=== PATIENT | female | born 1970 | race Caucasian/White ===

== ENCOUNTER 2018-06-13 16:32 | Emergency (ER) | payer MEDICAID ==
[~2018-06-13] VITALS: Ht 152.4 cm; Wt 68.0 kg
[2018-06-13 21:05] VITALS: BP 136/83
== END 2018-06-13 21:07 | disposition home or self-care (01) ==
LOC: ER 16:32
DX: J06.9 Acute upper respiratory infection, unspecified (principal); E11.9 Type 2 diabetes mellitus without complications; E78.00 Pure hypercholesterolemia, unspecified; I10 Essential (primary) hypertension; E78.5 Hyperlipidemia, unspecified
CPT/HCPCS: 71045; 81025; 93005; 99283

== ENCOUNTER 2021-10-19 11:38 | Emergency (ER) | payer MEDICAID ==
[~2021-10-19] VITALS: Ht 152.4 cm; Wt 60.0 kg
[2021-10-19 15:17] LABS: CHLORIDE 98 mEq/L (98-107)
[2021-10-19 15:23] LABS: BASOPHILS % 0.6 % (0.0-2.0); EOSINOPHILS % 0.1 % (0.0-5.0); HEMATOCRIT. 33.4 % (36.0-48.0); HEMOGLOBIN. 10.1 g/dL (12.0-16.0); LYMPHOCYTES % 27.3 % (20.0-50.0); MEAN CORPUSCULAR VOLUME 69.8 fL (81.0-99.0); MEAN PLATELET VOLUME 7.2 fl (7.4-10.4); MONOCYTES % 6.6 % (2.0-8.0); NEUTROPHILS % 65.4 % (40.0-76.0); PLATELET 420 x1000/uL (130-400); RED BLOOD CELL COUNT 4.79 mill/uL (4.2-5.4); RED CELL DISTRIBUTION WIDTH 24.6 % (11.6-14.6)
[2021-10-19 15:29] LABS: CLARITY URINE CLEAR (CLEAR); COLOR URINE YELLOW (YELLOW); KETONES URINE NEGATIVE (NEGATIVE); LEUKOCYTE ESTERASE URINE NEGATIVE (NEGATIVE); NITRITE URINE NEGATIVE (NEGATIVE); OCCULT BLOOD URINE NEGATIVE (NEGATIVE); PH URINE 5.5 (4.5-8.0); PROTEIN URINE NEGATIVE (NEGATIVE); SPECIFIC GRAVITY URINE 1.012 (1.005-1.030); UROBILINOGEN URINE 0.2 E.U./dL (0.2-1.0)
[2021-10-19 15:34] LABS: T4 FREE 1.26 ng/dL (0.76-1.46)
[2021-10-19 17:08] LABS: PLATELET ESTIMATE INCREASED
[2021-10-19 17:49] VITALS: BP 128/76
== END 2021-10-19 17:49 | disposition home or self-care (01) ==
LOC: ER 11:38
DX: R53.1 Weakness (principal); I10 Essential (primary) hypertension; E11.9 Type 2 diabetes mellitus without complications; E78.00 Pure hypercholesterolemia, unspecified; E03.9 Hypothyroidism, unspecified
CPT/HCPCS: 36415; 71045; 80053; 81003; 84439; 84443; 85025; 99285

== ENCOUNTER 2021-11-15 11:56 | Emergency (ER) | payer MEDICAID, OTHER ==
[~2021-11-15] VITALS: Ht 165.1 cm; Wt 65.0 kg
[2021-11-15] MEDS ORDERED: SODIUM CHLORIDE 0.9% 1,000 ML IV ONE (12:15)
[2021-11-15 12:45] LABS: HEMATOCRIT. 31.3 % (36.0-48.0); HEMOGLOBIN. 9.8 g/dL (12.0-16.0); MEAN CORPUSCULAR HEMOGLOBIN 22.5 pg (28.0-32.0); MEAN CORPUSCULAR VOLUME 71.5 fL (81.0-99.0); MEAN PLATELET VOLUME 7.1 fl (7.4-10.4); PLATELET 376 x1000/uL (130-400); RED BLOOD CELL COUNT 4.37 mill/uL (4.2-5.4); RED CELL DISTRIBUTION WIDTH 20.8 % (11.6-14.6)
[2021-11-15 12:47] LABS: CHLORIDE 92 mEq/L (98-107)
[2021-11-15 12:56] LABS: ETHANOL BLOOD < 10 mg/dL
[2021-11-15 13:12] LABS: HCG SCREEN NEGATIVE
[2021-11-15 14:30] LABS: CLARITY URINE CLOUDY (CLEAR); COLOR URINE YELLOW (YELLOW); KETONES URINE 2+ (NEGATIVE); LEUKOCYTE ESTERASE URINE NEGATIVE (NEGATIVE); NITRITE URINE NEGATIVE (NEGATIVE); OCCULT BLOOD URINE NEGATIVE (NEGATIVE); PH URINE 6.5 (4.5-8.0); PROTEIN URINE TRACE (NEGATIVE); SPECIFIC GRAVITY URINE 1.035 (1.005-1.030)
[2021-11-15 14:44] LABS: *AMPHETAMINES SCREEN URINE NEGATIVE (NEGATIVE); *BARBITURATES SCREEN URINE NEGATIVE (NEGATIVE); *BENZODIAZEPINES SCREEN URINE NEGATIVE (NEGATIVE); *COCAINE SCREEN URINE NEGATIVE (NEGATIVE); CANNABINOID URINE SCREEN NEGATIVE (NEGATIVE); METHADONE URINE SCREEN NEGATIVE (NEGATIVE); OPIATES URINE SCREEN NEGATIVE (NEGATIVE); PHENCYCLIDINE URINE SCREEN NEGATIVE (NEGATIVE)
[2021-11-15 15:08] LABS: PLATELET ESTIMATE NORMAL
[2021-11-16 06:00] LABS: CHLORIDE 103 mEq/L (98-107)
[2021-11-16] MEDS ORDERED: [UNRECOGNIZED DRUG - CODE] PO (11:06)
[2021-11-16] MEDS ORDERED: MULT-1116 PO (11:06)
[2021-11-16] MEDS ORDERED: METF-874 PO (11:06)
[2021-11-16] MEDS ORDERED: LOSA25TA26 PO (11:06)
[2021-11-16] MEDS ORDERED: FLUO10TA3 PO (11:06)
[2021-11-16] MEDS ORDERED: LORA10TA7 PO (11:06)
[2021-11-16] MEDS ORDERED: PIOG45TA64 PO (11:06)
[2021-11-16] MEDS ORDERED: ATOR20TA65 PO (11:06)
[2021-11-16 20:00] VITALS: BP 141/92
[2021-11-16] MEDS ORDERED: LORAZEPAM 1MG TABLET PO ONE (21:00)
[2021-11-16] MEDS ORDERED: ACETAMINOPHEN 325MG TABLET PO ONE (21:00)
[2021-11-17] MEDS ORDERED: SERTRALINE HCL 50MG TABLET PO SCH (09:00)
== END 2021-11-16 21:17 | disposition short-term general hospital (02) ==
LOC: ER 12:05
DX: T43.592A Poisoning by other antipsychotics and neuroleptics, intentional self-harm, initial encounter (principal); F32.9 Major depressive disorder, single episode, unspecified; F43.10 Post-traumatic stress disorder, unspecified; I10 Essential (primary) hypertension; E11.9 Type 2 diabetes mellitus without complications; D64.9 Anemia, unspecified; E78.00 Pure hypercholesterolemia, unspecified; E03.9 Hypothyroidism, unspecified; Z20.822 Contact with and (suspected) exposure to COVID-19; Y92.018 Other place in single-family (private) house as the place of occurrence of the external cause
CPT/HCPCS: 36415; 71045; 80048; 80053; 80305; 80307; 80320; 80329; 81003; 84703; 85025; 93005; 96360; 96361; 99285; C9803; J7030; U0003; U0005; G0480

== ENCOUNTER → 2024-08-01 | Day surgery (SDC) | payer MEDICAID, OTHER ==
[~2024-08-01] VITALS: Ht 157.5 cm; Wt 67.6 kg
[~2024-08-01] MED LIST: ARIP5TAB51 PO; ATOR20TA65 PO; BUPIVACAINE HCL/PF 0.5% (5MG/ML) 10ML ONE; DEXAMETHASONE 4MG/ML 1ML VIAL ONE; FENTANYL CITRATE/PF 50MCG/ML 2ML VIAL ONE; HYDROMORPHONE HCL/PF 2MG/ML INJ IV PRN; LABETALOL 5MG/ML 4ML INJ IV PRN; LOSA25TA26 PO; MEPERIDINE HCL/PF 25MG/ML CPJ IV PRN; METF-1150 PO; MIDAZOLAM HCL 2 MG/2 ML VIAL ONE; MIRT-89 PO; ONDANSETRON HCL 4MG/2ML INJ IV PRN; ONDANSETRON HCL 4MG/2ML INJ ONE; SUCCINYLCHOLINE CHLORIDE 200MG/10ML IV ONE; SUGAMMADEX SODIUM 200MG/2ML VIAL IV ONE; [UNRECOGNIZED DRUG - CODE] PO; [UNRECOGNIZED DRUG - OTHER] PO
[2024-08-01 07:40] LABS: UCG SCREEN NEGATIVE
[2024-08-01] MEDS: SODIUM CHLORIDE 0.9% 1,000 ML IV SCH (07:40)
[2024-08-01] MEDS: HYDROMORPHONE HCL/PF 1MG/ML INJ IV PRN (09:43)
[2024-08-01 11:12] VITALS: BP 119/72; PULSE 68; RESP 15
[2024-08-01] MEDS: ACETAMINOPHEN WITH CODEINE 300/30MG TABLET PO ONE (11:12)
== END | disposition home or self-care (01) ==
LOC: OR 06:32
PROVIDERS: ATTEND Surgery
DX: K80.10 Calculus of gallbladder with chronic cholecystitis without obstruction (principal); I10 Essential (primary) hypertension; E78.5 Hyperlipidemia, unspecified; E11.9 Type 2 diabetes mellitus without complications; F32.9 Major depressive disorder, single episode, unspecified; E05.90 Thyrotoxicosis, unspecified without thyrotoxic crisis or storm; Z79.899 Other long term (current) drug therapy; Z79.84 Long term (current) use of oral hypoglycemic drugs; Z98.890 Other specified postprocedural states
CPT/HCPCS: 47562; 81025; 82962; 88304; J3010; J0665; J1100; J2250; J2405; J0330; J1171; J7030